=== PATIENT | male | born 1960 | race Caucasian/White ===

== ENCOUNTER 2019-04-16 00:14 | Emergency (ER) | payer BC, OTHER ==
--- NOTE | 2019-04-16 00:33 | PDOC ---
Documentation entered by Dorcas Kaufman SCRIBE, acting as scribe for An Locke MD. An Locke MD: This documentation has been prepared by the peggyibe, Dorcas Kaufman SCRIBE, under my direction and personally reviewed by me in its entirety. I confirm that the documentation accurately reflects all work, treatment, procedures, and medical decision making performed by me. Attending Attestation - Resident Resident Name: Charles Dodge - ED Attending Attestation I have performed the following: I have examined & evaluated the patient, The case was reviewed & discussed with the resident, I agree w/resident's findings & plan, Exceptions are as noted - HPI HPI: 04/16/19 01:25 this 58 yo male dev sudden dizziness associated with nausea and vomiting just prior to arrival - Physicial Exam PE: 04/16/19 01:36 wnwd diaphoretic 58 yo male p/w dizziness and vomiting hed ncat eyes eomi, nystagmus neck no bruits cvs [id number] lungs rhonchi abd nontender neuro alert,motor strength 5/5 b/l - Medical Decision Making 04/16/19 01:49 58 yo male with sudden onset of vertigo,nausea and vomiting 04/16/19 01:52 plan meclizine,labs,imaging and re assess
[2019-04-16] MEDS ORDERED: ONDANSETRON 4 MG/2 ML VIAL IVPUSH ONE (00:35)
[2019-04-16] MEDS ORDERED: MECLIZINE HCL 25 MG TABLET (FP) PO ONE ×2 (00:35→01:56)
[2019-04-16 00:37] VITALS: TEMP 98.1; BMI 26.4
[2019-04-16] MEDS ORDERED: MECLIZINE HCL 25 MG TABLET (FP) ONE ×2 (00:38→01:59)
--- NOTE | 2019-04-16 00:40 | PDOC ---
History of Present Illness - General Chief Complaint: Nausea/Vomiting Stated Complaint: FLU-LIKE SYMPTOMS Time Seen by Provider: 04/16/19 00:34 - History of Present Illness Initial Comments: 04/16/19 00:36 58 yo M PMH HTN, asthma, presenting with dizziness. Reports onset of symptoms 30 minutes before arrival to the ED, "room spinning" sensation, triggered by rotating his head, lasting seconds at a time, associated with nausea and one episode of vomiting. Never had this before. No history of ID or stroke in the past, no recent URI. Further complains of tingling in both feet like "ants crawling". Specifically denies CP, SOB, DAVILA, abd pain, fevers/chills, urinary changes, weakness, numbness. Endorses dizziness, nausea, one episode of vomiting. Past History - Past Medical History Allergies/Adverse Reactions: Allergies Allergy/AdvReac Type Severity Reaction Status Date / Time Penicillins Allergy Severe RESPIRATORY Verified 04/16/19 00:39 DISTRESS Home Medications: Ambulatory Orders Amlodipine Besylate 5 mg PO DAILY 12/11/15 Fluticasone/Salmeterol [Advair 250-50 Diskus] 1 each IH PRN PRN 12/11/15 Garlic 1 cap PO DAILY 12/11/15 Marybeth Root 550 mg PO DAILY 12/11/15 Glucosamine Sulfate Dipot Chlr [Glucosamine] 1,000 mg PO DAILY 12/11/15 Losartan/Hydrochlorothiazide [Losartan-Hctz 100-25 mg Tab] 1 tab PO HS 12/11/15 Multivitamins [Multivit ([facility])] 1 tab PO DAILY 12/11/15 Lee-3 Fatty Acids/Fish Oil [Fish Oil 1,000 mg Softgel] 1 tab PO DAILY Hydrocodone/Acetaminophen [[place] 5-325 Tablet] 1 each PO Q6H PRN #40 tablet MDD 6 12/19/15 Ibuprofen 800 mg PO Q8H #60 tablet 12/19/15 Anemia: No Asthma: Yes (DX 2010-MILD) Cancer: No Cardiac Disorders: No CVA: No COPD: No CHF: No Dementia: No Diabetes: No GI Disorders: Yes (GASTRITIS, DIVERTICULOSIS) Disorders: No HTN: Yes (DX 2001) Hypercholesterolemia: No Liver Disease: No Seizures: No Thyroid Disease: No - Surgical History Abdominal Surgery: No Appendectomy: No Cardiac Surgery: Yes (CARIA CATH-NORMAL- 2013) Cholecystectomy: No Lung Surgery: No Neurologic Surgery: No - Psycho Social/Smoking Cessation Hx Smoking History: Never smoked Have you smoked in the past 12 months: No Hx Alcohol Use: No Drug/Substance Use Hx: No Substance Use Type: None Hx Substance Use Treatment: No Review of Systems - Review of Systems Able to Perform ROS?: Yes Constitutional: No: Chills, Diaphoresis, Fever HEENTM: No: Recent change in vision, Double Vision, Throat Pain, Difficulty Swallowing Respiratory: No: Cough, Shortness of Breath Cardiac (ROS): No: Chest Pain, Irregular Heart Rate, Chest Tightness ABD/GI: Yes: Nausea, Vomiting. No: Constipated, Diarrhea : No: Burning Musculoskeletal: No: Back Pain, Muscle Weakness Neurological: Yes: Tingling (b/l feet), Dizziness. No: Headache, Numbness, Tremors, Weakness *Physical Exam - Vital Signs Last Vital Signs Temp Pulse Resp BP Pulse Ox 98.1 F 62 18 167/71 100 04/16/19 00:25 04/16/19 00:25 04/16/19 00:25 04/16/19 00:25 04/16/19 00:25 - Physical Exam Comments: 04/16/19 00:38 Gen: well-developed, well-nourished, NAD Neuro: AAOX4, CN II-XII intact, FTN intact, EOMI, PERRLA, 5/5 strength, SILT. Horizontal nystagmus on L side, not R side HEENT: atraumatic, normocephalic, dry mucous membranes Neck: trachea midline, supple CV: bradycardic in 50s, regular rhythm, no murmurs, rubs, or gallops Pulm: CTA b/l, no wheezing Abd: soft, non-distended, non-tender MSK: full ROM, intact pulses Extr: no edema, no deformities Skin: warm, dry ED Treatment Course - LABORATORY CBC & Chemistry Diagram: 04/16/19 00:44 04/16/19 00:44 - RADIOLOGY Radiology Studies Ordered: Category Date Time Status CHEST PA & LAT [RAD] Stat Radiology 04/16/19 00:35 Ordered Medical Decision Making - Medical Decision Making 04/16/19 00:39 Concern for peripheral vertigo. - CBC, CMP, trop - EKG, chest PA + L - Zofran 4mg IV - meclizine 25mg PO - CT head considering acute onset, acute tingling in feet - ctm 04/16/19 01:18 EKG 54 bpm, normal sinus. CBC and CMP unremarkable, trop negative. Patient reports feeling better. Will f/u chest PA + L, CT head, ctm. 04/16/19 01:36 CXR without acute pathology. 04/16/19 04:13 Cleared out significant amounts of ear wax from L ear. Patient feeling significantly improved. Will dc home. Discharge - Discharge Information Problems reviewed: Yes Clinical Impression/Diagnosis: Dizziness Condition: Improved Disposition: HOME - Follow up/Referral Referrals: Joon Maher MD [Primary Care Provider] - - Patient Discharge Instructions Patient Printed Discharge Instructions: DI for Vertigo Additional Instructions: You were seen with dizziness. This is likely to have been vertigo. Your labs, EKG, X ray, and CT of your head were all unconcerning. Your symptoms improved with medication and with removal of significant ear wax in your left ear. Follow up with your primary care doctor within one week. Return to the ED if you develop worsening symptoms. - Post Discharge Activity
[2019-04-16] MEDS ORDERED: ONDANSETRON 4 MG/2 ML VIAL ONE (00:41)
[2019-04-16 00:52] LABS: BASO % 0.3 % (0-2.0); EOS % 1.4 % (0-4.5); HEMATOCRIT 39.5 % (35.4-49); HEMOGLOBIN 13.8 GM/dL (11.7-16.9); LYMPH % 19.4 % (8-40); MCH 31.2 pg (25.7-33.7); MCHC 34.9 g/dl (32.0-35.9); MEAN CELL VOLUME 89.4 fl (80-96); NEUT % 71.9 % (42.8-82.8); PLATELET COUNT 272 K/MM3 (134-434); RBC 4.42 M/mm3 (4.00-5.60); RDW 13.1 % (11.9-15.9); WHITE BLOOD COUNT 9.7 K/mm3 (4.0-10.0)
[2019-04-16 01:17] LABS: ALBUMIN 3.8 g/dl (3.4-5.0); BILIRUBIN,TOTAL 0.3 mg/dL (0.2-1); CALCIUM 8.7 mg/dL (8.5-10.1); CREATININE 0.9 mg/dL (0.55-1.3); TOT PROT 6.4 g/dl (6.4-8.2)
[2019-04-16 01:20] LABS: POTASSIUM 3.9 mmol/L (3.5-5.1)
[2019-04-16] MEDS ORDERED: SODIUM CHLORIDE 1,000 ML IV STA (03:18)
[2019-04-16 03:37] VITALS: BP 132/66; PULSE 50
--- NOTE | 2019-04-16 10:01 | EKG ---
Test Reason : Blood Pressure : / mmHG Vent. Rate : 054 BPM Atrial Rate : 054 BPM P-R Int : 170 ms QRS Dur : 086 ms QT Int : 474 ms P-R-T Axes : 032 051 027 degrees QTc Int : 449 ms SINUS BRADYCARDIA OTHERWISE NORMAL ECG WHEN COMPARED WITH ECG OF 23-JAN-2011 11:53, NO SIGNIFICANT CHANGE WAS FOUND Confirmed by YOSSI FORD MD ([id number]) on 04/16/2019 10:00:42 AM Referred By: Confirmed By:YOSSI FORD MD
== END 2019-04-16 04:21 | disposition home or self-care (01) ==
LOC: JER 00:14
PROC: 3E1B78Z Irrigation of Ear using Irrigating Substance, Via Natural or Artificial Opening (ICD-10-PCS; principal; 2019-04-16)
PROC: 3E0337Z Introduction of Electrolytic and Water Balance Substance into Peripheral Vein, Percutaneous Approach (ICD-10-PCS; 2019-04-16)
PROC: 3E033GC Introduction of Other Therapeutic Substance into Peripheral Vein, Percutaneous Approach (ICD-10-PCS; 2019-04-16)
DX: R42 Dizziness and giddiness (principal); H61.22 Impacted cerumen, left ear; I10 Essential (primary) hypertension; J45.909 Unspecified asthma, uncomplicated; Z87.19 Personal history of other diseases of the digestive system; Z98.61 Coronary angioplasty status; Z88.0 Allergy status to penicillin
CPT/HCPCS: 36415; 70450-TC; 71046-TC-FY; 80053; 84484; 85025; 93005; 93010; 99284-25; J7030

== ENCOUNTER 2022-04-27 10:45 | Emergency (ER) | payer OTHER ==
[2022-04-27 11:28] VITALS: TEMP 97.5; BMI 21.6
[2022-04-27] MEDS ORDERED: FAMOTIDINE 20 MG/50 ML IVPB 20 MG/50 ML MG IVPB ONE ×2 (11:47→12:29)
[2022-04-27] MEDS ORDERED: ACETAMINOPHEN 1000 MG/100 ML BAG IVPB ONE (11:47)
[2022-04-27] MEDS ORDERED: SODIUM CHLORIDE 0.9% 500 ML INFUS.BAG IV ONE (11:47)
[2022-04-27] MEDS ORDERED: ONDANSETRON 4 MG/2 ML VIAL IVPUSH ONE (11:47)
[2022-04-27] MEDS ORDERED: ONDANSETRON 4 MG/2 ML VIAL ONE (12:29)
[2022-04-27] MEDS ORDERED: ACETAMINOPHEN INJECTION 100 ML IVPB ONE (12:29)
[2022-04-27 13:26] LABS: URINE APPEARANCE CLEAR; URINE BILIRUBIN NEGATIVE (NEGATIVE); URINE COLOR YELLOW; URINE GLUCOSE (UA) NEGATIVE (NEGATIVE); URINE KETONE NEGATIVE (NEGATIVE); URINE LEUK ESTERASE NEGATIVE (NEGATIVE); URINE NITRITE NEGATIVE (NEGATIVE); URINE PROTEIN NEGATIVE (NEGATIVE); URINE UROBILINOGEN 0.2 mg/dL (0.2-1.0)
[2022-04-27 13:33] LABS: BASO % 0.3 % (0-2.0); EOS % 0.5 % (0-4.5); HEMOGLOBIN 14.2 GM/dL (11.7-16.9); LYMPH % 24.5 % (8-40); MCH 31.3 pg (25.7-33.7); MCHC 34.7 g/dl (32.0-35.9); MEAN CELL VOLUME 90.2 fl (80-96); MEAN PLT VOLUME 8.5 fl (7.5-11.1); MONO % 8.2 % (3.8-10.2); NEUT % 66.5 % (42.8-82.8); PLATELET COUNT 240 10^3/uL (134-434); RBC 4.55 M/mm3 (4.00-5.60); RDW 12.9 % (11.9-15.9); WHITE BLOOD COUNT 5.6 K/mm3 (4.0-10.0)
[2022-04-27 13:38] LABS: INR 1.01 (0.83-1.09); PROTHROMBIN TIME (PATIENT) 11.6 SEC (9.7-13.0)
[2022-04-27 13:42] LABS: ACTIVATED PTT 41.4 SECONDS (25.2-36.5)
[2022-04-27 13:51] LABS: ALBUMIN 3.8 g/dl (3.4-5.0); BLOOD UREA NITROGEN 10.1 mg/dL (7-18); CALCIUM 8.9 mg/dL (8.5-10.1); MAGNESIUM 2.2 mg/dL (1.8-2.4)
[2022-04-27 13:54] LABS: CREATININE 0.8 mg/dL (0.55-1.3)
[2022-04-27 13:56] LABS: BILIRUBIN,TOTAL 0.6 mg/dL (0.2-1); TOT PROT 6.3 g/dl (6.4-8.2)
[2022-04-27 18:19] VITALS: BP 180/83; PULSE 51; RESP 18
== END 2022-04-27 18:27 | disposition home or self-care (01) ==
LOC: JER 10:45
PROC: 3E0333Z Introduction of Anti-inflammatory into Peripheral Vein, Percutaneous Approach (ICD-10-PCS; principal; 2022-04-27)
PROC: 3E033GC Introduction of Other Therapeutic Substance into Peripheral Vein, Percutaneous Approach (ICD-10-PCS; 2022-04-27)
PROC: 3E033GC Introduction of Other Therapeutic Substance into Peripheral Vein, Percutaneous Approach (ICD-10-PCS; 2022-04-27)
DX: R10.13 Epigastric pain (principal); R11.0 Nausea; R19.7 Diarrhea, unspecified
CPT/HCPCS: 0241U-QW; 36415; 71046-TC-FY; 74177-TC; 76705-TC; 80053; 81003; 83690; 83735; 84484; 85025; 85610; 85730; 87086; 93005; 93010; 99285-25; Q9967

== ENCOUNTER 2022-12-02 06:19 | Day surgery (SDC) | payer OTHER ==
[2022-11-30 11:44] VITALS: BMI 22.6
[2022-12-02] MEDS ORDERED: BUPIVACAINE HCL/PF 2.5 MG/ML - 30 ML VIAL IJ ONE (07:11)
[2022-12-02] MEDS ORDERED: EPINEPHrine 1:1,000 1,000 MCG/ML ML ONE (07:11)
[2022-12-02] MEDS ORDERED: MIDAZOLAM HCL 2 MG/2 ML SINGLE DOSE VIAL ONE (07:21)
[2022-12-02] MEDS ORDERED: GLYCOPYRROLATE 0.2 MG/1 ML VIAL ONE (07:21)
[2022-12-02] MEDS ORDERED: PROPOFOL 20 ML ONE (07:21)
[2022-12-02] MEDS ORDERED: LIDOCAINE HCL/PF 2% SDV 5ML VIAL ONE (07:21)
[2022-12-02] MEDS ORDERED: PROMETHAZINE HCL 25 MG/1 ML VIAL IVPB PRN (07:36)
[2022-12-02] MEDS ORDERED: ONDANSETRON 4 MG/2 ML VIAL IVPUSH PRN (07:36)
[2022-12-02] MEDS ORDERED: oxyCODONE HCL 5 MG TABLET PO PRN (07:36)
[2022-12-02] MEDS ORDERED: ACETAMINOPHEN INJECTION 100 ML IVPB ONE (07:38)
[2022-12-02] MEDS ORDERED: LACTATED RINGERS SOLUTION 1,000 ML IV SCH (07:45)
[2022-12-02] MEDS ORDERED: CLINDAMYCIN 600MG PREMIX IVPB 600 MG/50 ML BAG IVPB ONE (07:54)
[2022-12-02] MEDS ORDERED: DEXAMETHASONE SOD PHOSPHATE 4 MG/1 ML VIAL ONE (07:58)
[2022-12-02] MEDS ORDERED: KETOROLAC TROMETHAMINE 30 MG/1 ML VIAL ONE (08:05)
[2022-12-02] MEDS ORDERED: ONDANSETRON 4 MG/2 ML VIAL ONE (08:58)
[2022-12-02] MEDS ORDERED: FENTANYL CITRATE/PF 50 MCG/ML VIAL ONE (08:59)
[2022-12-02 10:17] VITALS: RESP 20; TEMP 97
[2022-12-02 10:25] VITALS: BP 142/85; PULSE 58
== END 2022-12-02 10:39 | disposition home or self-care (01) ==
LOC: FASU 06:19
PROVIDERS: ATTEND Orthopaedic Surgery
PROC: 0SBD4ZZ Excision of Left Knee Joint, Percutaneous Endoscopic Approach (ICD-10-PCS; 2022-12-02)
PROC: 0SBD4ZZ Excision of Left Knee Joint, Percutaneous Endoscopic Approach (ICD-10-PCS; principal; 2022-12-02 08:04)
DX: S83.242A Other tear of medial meniscus, current injury, left knee, initial encounter (principal); S83.8X2A Sprain of other specified parts of left knee, initial encounter; M65.862 Other synovitis and tenosynovitis, left lower leg; X58.XXXA Exposure to other specified factors, initial encounter; Y93.9 Activity, unspecified; Y92.9 Unspecified place or not applicable
CPT/HCPCS: 94760

== ENCOUNTER 2023-09-30 11:41 | Emergency (ER) | payer OTHER ==
[2023-09-30 11:47] VITALS: BP 159/73; PULSE 72; RESP 18; TEMP 97.8; BMI 22.8
[2023-09-30] MEDS ORDERED: predniSONE 20 MG TABLET (UD) ONE (12:09)
[2023-09-30] MEDS ORDERED: IBUPROFEN 600 MG TABLET (FP) PO ONE (12:09)
[2023-09-30] MEDS: predniSONE 20 MG TABLET (UD) PO ONE (12:17)
[2023-09-30] MEDS: IBUPROFEN 400 MG TABLET (FP) PO ONE (12:17)
== END 2023-09-30 12:40 | disposition home or self-care (01) ==
LOC: JERFT 11:41
DX: B02.23 Postherpetic polyneuropathy (principal); R20.2 Paresthesia of skin; R21 Rash and other nonspecific skin eruption
CPT/HCPCS: 99283-25

== ENCOUNTER 2024-11-21 12:51 | Emergency (ER) | payer OTHER ==
[2024-11-21 14:48] VITALS: BP 163/85; PULSE 58; RESP 20; TEMP 99; BMI 23.3
[2024-11-21] MEDS ORDERED: ERYTHROMYCIN 0.5% OPHTHALMIC OINTMENT 3.5 GM TUBE OD ONE (15:15)
== END 2024-11-21 15:41 | disposition home or self-care (01) ==
LOC: JERFT 12:51
DX: H11.31 Conjunctival hemorrhage, right eye (principal); T55.1X1A Toxic effect of detergents, accidental (unintentional), initial encounter; Y99.0 Civilian activity done for income or pay
CPT/HCPCS: 99283-25